=== PATIENT | male | born 1935 | race Hispanic/Latino ===

== ENCOUNTER 2016-08-16 07:14 | Day surgery (SDC) | payer BC, MEDICARE ==
[2016-08-16 08:34] VITALS: BMI 24.3
[2016-08-16] MEDS ORDERED: Midazolam 2 MG/2 ML VIAL ONE (08:46)
[2016-08-16] MEDS ORDERED: Rocuronium 10 mg/ml (5 ml) ONE (08:46)
[2016-08-16] MEDS ORDERED: Propofol 10 mg/ml Inj (20 ML) ONE (08:51)
[2016-08-16] MEDS ORDERED: Bupivacaine 0.5% Inj(30mL) ONE (09:17)
[2016-08-16] MEDS ORDERED: Lidocaine 1% Inj (20ml) ONE (09:17)
[2016-08-16] MEDS ORDERED: Lactated Ringer's 1,000 ML IV SCH (09:18)
[2016-08-16] MEDS ORDERED: Sevoflurane - Inhalation Anesthetic Liq (250 ml) ONE (09:46)
[2016-08-16] MEDS ORDERED: Glycopyrrolate 0.2 mg/ml (2ml vial) ONE (10:03)
[2016-08-16] MEDS ORDERED: Neostigmine Methylsulfate 3mg/3ml Syringe IV ONE (10:04)
--- NOTE | 2016-08-16 11:02 | PCM.SURG1 ---
Surgeon's Initial Post Op Note - Surgeon's Notes Surgeon: Dr. Garcia Team Lead: Dr. Porter Type of Anesthesia: General Endo, Local Pre-Operative Diagnosis: right inguinal hernia Operative Findings: see op report Post-Operative Diagnosis: right inguinal hernia Operation Performed: right inguinal hernia repair w/ mesh Specimen/Specimens Removed: none Estimated Blood Loss: EBL {In ML}: 5 Blood Products Given: N/A Drains Used: No Drains Post-Op Condition: Good Date of Surgery/Procedure: 08/16/16 Time of Surgery/Procedure: 11:01
--- NOTE | 2016-08-16 11:14 | OP ---
PROCEDURE DATE: 08/16/2016 PREOPERATIVE DIAGNOSIS: Right inguinal hernia. POSTOPERATIVE DIAGNOSIS: Right inguinal hernia. PROCEDURE PERFORMED: Right inguinal hernia repair with PHS double-layer mesh. SURGEON: Elfego Garcia MD. FLAG FOOTBALL COACH: Dr. Porter. ANESTHESIOLOGIST: Dr. Wilkinson. ANESTHESIA: General endotracheal anesthesia. ESTIMATED BLOOD LOSS: Minimal. SPECIMEN: None. INDICATION: The patient is a 81-year-old male who was seen in the office with complaint of a bulge i n the right groin associated with tenderness and discomfort. The physical exam showed presence of a right inguinal hernia, and the patient was scheduled for the repair. DESCRIPTION OF PROCEDURE: The patient was brought to the operating room and placed on the operating table in supine position. The patient was connected to EKG, blood pressure, and pulse oximeter monit ors. The patient then underwent general endotracheal anesthesia, was prepped and draped in the usual sterile fashion. First, standard timeout procedure took place with everybody in the room agreeing a s to the patient's identity, diagnosis, and procedure to be performed. Using lidocaine mixed with Marcaine, the area of the incision was infiltrated, and incision was made through the skin and subcutaneous fat. Rosey's fascia was incised, and the external oblique aponeur osis was identified. This was incised along its fibers and elevated from the underlying cord. Next, ____ clamp was placed to retract the transversalis fascia, and the cord with its structures was care fully dissected out off the floor of the inguinal canal. It appeared that there was a direct herniat ion through the floor of the inguinal canal, which was carefully pushed back, and the preperitoneal s pace was then mobilized through the internal ring of the inguinal canal. Once I was satisfied with t he mobilization and exposure, I then placed the PHS - double-layer applied with the posterior layer p laced in the preperitoneal space, and the external layers sutured to the edges of the transversalis f ascia and inguinal ligament, leaving adequate opening for the cord exit site. The external layer zapata d a keyhole cut out for the cord exit site and was sutured behind it leaving just a 2-cm opening for the cord itself. Now, the external portion of the plug was placed flatly on the floor of the inguinal canal, and the c ord was placed back in its original position. The ilioinguinal nerve, which was earlier identified, appeared to be running fairly high above the repair, and therefore, was left alone. The external obl ique aponeurosis was now sutured together using 3-0 Vicryl in running fashion covering the cord exit site and the internal inguinal ring. The area was now infiltrated with lidocaine mixed with Marcaine and Toradol. The wound was copiously irrigated. All the irrigant fluid was suctioned out. There was excellent hemostasis. The wound th en was closed using 3-0 Vicryl for the Rosey's fascia, 3-0 Vicryl for the deep dermal layer and 4-0 Monocryl for skin. A sterile Dermabond dressing was applied to the wound. The patient tolerated the procedure well, and there were no complications. The patient was awakened and transferred to recovery room for further observation. Elfego Garcia MD cc: [id number] TT: 08/16/2016 11:13:58 jn
[2016-08-16 11:46] VITALS: RESP 18
[2016-08-16 12:00] VITALS: TEMP 97.5
[2016-08-16 12:28] VITALS: O2SAT 97
[2016-08-16 13:22] VITALS: BP 148/78; PULSE 60
== END 2016-08-16 13:30 | disposition home or self-care (01) ==
LOC: SDS 07:14
PROVIDERS: ATTEND General Practice
DX: K40.90 Unilateral inguinal hernia, without obstruction or gangrene, not specified as recurrent (principal); I10 Essential (primary) hypertension
CPT/HCPCS: 49505; C1781; J0690; J1885; J2001; J2250; J2405; J2704; J2710; J3010; J7120 ×2

== ENCOUNTER 2016-09-20 06:12 | Day surgery (SDC) | payer BC, MEDICARE ==
[2016-09-13 08:11] VITALS: BMI 22.8
[2016-09-20 06:53] LABS: BASO # 0.02 K/mm3 (0.0-2.0); BASO % 0.2 % (0.0-3.0); EOS # 0.3 (0.0-0.7); EOS % 3.4 % (1.5-5.0); GRAN # 5.69 (1.4-6.5); GRAN % 66.7 % (50.0-68.0); HEMOGLOBIN 13.4 gm/dL (14.0-18.0); LYMPH # 1.8 (1.2-3.4); LYMPH % 20.7 % (22.0-35.0); MEAN CELL VOLUME 91.1 fL (80.0-105.0); MEAN CORPUSCULAR HGB CONC 32.9 g/dl (31.0-37.0); MEAN PLATELET VOLUME 10.3 fl (7.0-11.0); MONO # 0.8 (0.1-0.6); PLATELET COUNT 203 10^3/uL (120.0-450.0); RBC 4.47 10^6/uL (3.5-6.1); RED CELL DISTRIBUTION WIDTH 13.8 % (11.5-14.5); WHITE BLOOD COUNT 8.5 10^3/ul (4.5-11.0)
[2016-09-20 07:08] LABS: BLOOD UREA NITROGEN 27 mg/dL (7-21); GFR AFRICAN-AMERICAN > 60; GFR NON-AFRICAN AMERICAN > 60
[2016-09-20] MEDS ORDERED: Bupivacaine 0.5% Inj(30mL) ONE (07:27)
[2016-09-20] MEDS ORDERED: Propofol 10 mg/ml Inj (20 ML) ONE ×2 (07:43→08:42)
[2016-09-20] MEDS ORDERED: Midazolam 2 MG/2 ML VIAL ONE (07:43)
[2016-09-20] MEDS ORDERED: Phenylephrine 10 mg/ml Inj ONE (07:46)
[2016-09-20] MEDS ORDERED: ePHEDrine 50 mg/ml Inj ONE (07:47)
[2016-09-20] MEDS ORDERED: Rocuronium 10 mg/ml (5 ml) ONE ×2 (08:21)
[2016-09-20] MEDS ORDERED: Neostigmine Methylsulfate 3mg/3ml Syringe IV ONE (09:10)
[2016-09-20] MEDS ORDERED: Naloxone 0.4 mg/ml Inj (Adult) ONE (09:31)
--- NOTE | 2016-09-20 09:48 | PCM.SURG1 ---
Surgeon's Initial Post Op Note - Surgeon's Notes Surgeon: Dr. Garcia Can Sterilizer: Dr. Mauricio PGY2, Dr. Latham PGY1, Ellie Ferrell OMS3 Type of Anesthesia: General Mask, Local Pre-Operative Diagnosis: Left Inguinal hernia Operative Findings: see op note Post-Operative Diagnosis: Left Pantaloon Hernia Operation Performed: Left inguinal herniorraphy with mesh Specimen/Specimens Removed: none Estimated Blood Loss: EBL {In ML}: 3 Date of Surgery/Procedure: 09/20/16 Time of Surgery/Procedure: 08:00
[2016-09-20] MEDS ORDERED: HYDROmorphone 0.5 mg/0.5 ml ISec IVP PRN (09:49)
[2016-09-20] MEDS ORDERED: Lactated Ringer's 1,000 ML IV SCH (09:49)
[2016-09-20 10:49] VITALS: RESP 18; TEMP 97.5; O2SAT 97
[2016-09-20 11:33] VITALS: BP 129/75; PULSE 71
--- NOTE | 2016-09-21 00:36 | OP ---
PROCEDURE DATE: 09/20/2016 PREOPERATIVE DIAGNOSIS: Left inguinal hernia. POSTOPERATIVE DIAGNOSIS: Left inguinal hernia. PROCEDURE: Left inguinal hernia repair with PHS mesh. SURGEON: Elfego Garcia MD PROOF MACHINE OPERATOR SUPERVISOR: Dr. Mauricio. TYPE OF ANESTHESIA: LMA general anesthesia. ANESTHESIA ADMINISTERED BY: Dami Herbert MD ESTIMATED BLOOD LOSS: Minimal. SPECIMEN: None. INDICATIONS: The patient is a 81-year-old male with history of right inguinal hernia, status post repair now, came back with a left inguinal hernia associated with tenderness and discomfort and was scheduled for the repair. DESCRIPTION OF PROCEDURE: The patient was brought to the operating room, placed on operating table in supine position. The patient was connected to EKG, blood pressure, and pulse oximetry monitors. The patient then underwent the LMA anesthesia and was prepped and draped in the usual sterile fashion. First, a standard time-out procedure took place and everybody in the room agreed as to the patient's identify, diagnosis, and procedure to be performed.. Using lidocaine mixed with Marcaine, the area of the incision was infiltrated and a #15 blade was used in order to make an incision to the skin. This incision was carried through the subcutaneous fat and fascia and access to the external oblique aponeurosis was obtained. That was incised along its fibers and carefully elevated and the underlying spermatic cord with its structures were elevated on a Rule drain. Now, the floor of the inguinal canal was carefully evaluated, and it appeared that there was a direct component to the hernia. There was also an indirect component to this hernia which was carefully from the cord structures and pushed back into the abdomen cavity. At this point, the properitoneal space was mobilized carefully and the edges of the transversalis fascia as well as the edges of the inguinal ligament was grabbed with Allis clamps. The double-layer PHS mesh patch was used to repair the hernia and patches, posterior leaf was placed in the preperitoneal place and the anterior leaf was sutured to the edges of transversalis fascia and inguinal ligament. Once the patch was in place, the keyhole cut out was made for the exit site in spermatic cord and the superficial portion of the patch was placed laterally on the floor of the inguinal canal. The ilioinguinal nerve, which was running above the area of dissection appeared to be intact after the surgery. Now, the area was copiously irrigated. All the irrigant fluid was suctioned out. There was excellent hemostasis. The external oblique aponeurosis was now sutured after the cord was placed back in its original position and the area was infiltrated with lidocaine mixed with Toradol. The Rosey fascia was closed using 3-0 Vicryl and so was the deep dermal layer. The skin was closed using 4-0 Monocryl in a subcuticular fashion. A sterile Dermabond dressing was applied to the wound. The patient tolerated the procedure well and there were no complications. The patient was awaken and transferred to recovery room for further observation. Elfego Garcia MD
== END 2016-09-20 11:55 | disposition home or self-care (01) ==
LOC: SDS 06:12
PROVIDERS: ATTEND General Practice
DX: K40.90 Unilateral inguinal hernia, without obstruction or gangrene, not specified as recurrent (principal)
CPT/HCPCS: 36415; 49505; 80048; 85025; C1781; J0690; J1170; J1885; J2001; J2250; J2310; J2370; J2405; J2704; J2710; J3010; J7120 ×2

== ENCOUNTER 2018-03-19 19:51 | Emergency (ER) | payer MEDICARE, OTHER ==
[2018-03-19 19:51] VITALS: BMI 22.8
--- NOTE | 2018-03-19 20:10 | ED PDOC ---
Arrival/HPI - General Chief Complaint: Seizure Time Seen by Provider: 03/19/18 19:52 Historian: Patient - History of Present Illness Narrative History of Present Illness (Text): 03/19/18 20:10 Praful Narayanan is an 83 year old male, whose past medical history includes seizure disorder, hypertension, hyperlipidemia, and GERD, who presents to the Emergency department accompanied by family status post seizure. As per patient, he woke up this morning feeling increasingly dizzy and had a witnessed seizure episode prior to arrival. states this is the patient's first seizure in approximately 3 years and patient notes he has been compliant with his Lamictal. Patient notes he currently feels "a bit cloudy." Patient denies any fever, chills, chest pain, shortness of breath, nausea, vomiting, diarrhea, urinary symptoms, back pain, neck pain, headache, vision changes, numbness/weakness, or any other complaints. PMD: Dr. Lafleur Neurologist: Dr. Xavier Paez Symptom Onset: Gradual Symptom Course: Unchanged Activities at Onset: Light Context: Home Past Medical History - Provider Review Nursing Documentation Reviewed: Yes - Infectious Disease Hx of Infectious Diseases: None - Tetanus Immunization Tetanus Immunization: Unknown - Cardiac Hx Pacemaker: No - Pulmonary Hx Respiratory Disorders: No Hx Asthma: No Hx Bronchitis: No Hx Chronic Obstructive Pulmonary Disease (COPD): No Hx Emphysema: No Hx Pneumonia: No Hx Respiratory Aspiration: No Hx Respiratory Tract Infection: No Hx Sleep Apnea: No Hx Tuberculosis: No - Neurological Hx Paralysis: No - HEENT Hx HEENT Disorder: No Hx Blind: No Hx Cataracts: Yes (cataract sx) Hx Deafness: No Hx Difficulty Chewing: No Hx Epistaxis: No Hx Glaucoma: No Hx Macular Degeneration: No - Renal Hx Renal Disorder: No Hx Dialysis: No Hx Kidney Stones: No Hx Neurogenic Bladder: No Hx Pyelonephritis: No Hx Renal Cancer: No Hx Renal Failure: No - Endocrine/Metabolic Hx Endocrine Disorders: No Hx Adrenal Cancer: No Hx Diabetes Insipidus: No Hx Diabetes Mellitus Type 1: No Hx Diabetes Mellitus Type 2: No Hx Hyperthyroidism: No Hx Hypothyroidism: No Hx Systemic Lupus Erythematosus: No - Hematological/Oncological Hx Blood Transfusions: No - Integumentary Hx Dermatological Disorder: No Hx Basal Cell Carcinoma: No Hx Eczema: No Hx Melanoma: No Hx Psoriasis: No Hx Squamous Cell Carcinoma: No - Musculoskeletal/Rheumatological Hx Musculoskeletal Disorders: No - Gastrointestinal Hx Gastrointestinal Disorders: No Hx Colostomy: No Hx Crohn's Disease: No Hx Diverticulitis: No Hx Gall Bladder Disease: No Hx Gastroesophageal Reflux: No Hx Gastrointestinal Ulcer: No Hx Ileostomy: No Hx Liver Failure: No Hx Pancreatitis: No HX Swallowing Problems: No - Genitourinary/Gynecological Hx Genitourinary Disorders: No Hx Hematuria: No Hx Incontinence: No Hx Prostate Problems: No Hx Sexually Transmitted Diseases: No Hx Urinary Tract Infection: No - Psychiatric Hx Emotional Abuse: No Hx Physical Abuse: No Hx Substance Use: No - Past Surgical History Past Surgical History: Non-Contributing - Surgical History Hx Amputation: No Hx Appendectomy: No Hx Cardiac Catheterization: No Hx Cholecystectomy: No Hx Coronary Stent: No Hx Gastric Bypass Surgery: No Hx Hysterectomy: No Hx Inguinal Hernia Repair: No Hx Joint Replacement: No Hx Kidney Transplant: No Hx Liver Transplant: No Hx Mastectomy: No Hx Musculoskeletal Surgery: No Hx Open Heart Surgery: No Hx Orthopedic Surgery: No Hx Splenectomy: No Hx Valve Replacement: No - Anesthesia Hx Anesthesia Reactions: No Hx Malignant Hyperthermia: No - Suicidal Assessment Feels Threatened In Home Enviroment: No Family/Social History - Physician Review Nursing Documentation Reviewed: Yes Family/Social History: Unknown Family HX Smoking Status: Never Smoked Hx Alcohol Use: No Hx Substance Use: No Allergies/Home Meds Allergies/Adverse Reactions: Allergies No Known Allergies Allergy (Verified 03/19/18 19:57) Home Medications: Home Meds Medication Instructions Recorded Confirmed Aspirin [Ecotrin] 81 mg PO DAILY 08/10/16 03/19/18 Candesartan Cilexetil [Atacand] 8 mg PO DAILY 08/10/16 03/19/18 Esomeprazole Magnesium [Nexium] 40 mg PO DAILY 08/10/16 03/19/18 Ezetimibe [Zetia] 10 mg PO DAILY 08/10/16 03/19/18 LORazepam [Ativan] 0.5 mg PO PRN PRN 08/10/16 03/19/18 Lamotrigine [Lamictal] 150 mg PO TID 08/10/16 03/19/18 RX: traMADol [Ultram] 50 mg PO Q6 PRN 09/20/16 03/19/18 Review of Systems - Physician Review All systems were reviewed & negative as marked: Yes - Review of Systems Constitutional: Normal. absent: Fevers Eyes: Normal ENT: Normal Respiratory: Normal. absent: SOB, Cough Cardiovascular: Normal. absent: Chest Pain Gastrointestinal: Normal. absent: Abdominal Pain, Diarrhea, Nausea, Vomiting Genitourinary Male: Normal. absent: Dysuria, Frequency, Hematuria, Urinary Output Changes Musculoskeletal: Normal. absent: Neck Pain Skin: Normal. absent: Rash Neurological: Dizziness, Seizure Endocrine: Normal Hemo/Lymphatic: Normal Psychiatric: Normal Physical Exam Vital Signs Reviewed: Yes Vital Signs Temp Pulse Resp BP Pulse Ox 03/19/18 20:03 97.5 F L 91 H 18 162/102 H 95 Temperature: Afebrile Blood Pressure: Hypertensive Pulse: Regular Respiratory Rate: Normal Appearance: Positive for: Well-Appearing, Non-Toxic, Comfortable Pain Distress: None Mental Status: Positive for: Alert and Oriented X 3 - Systems Exam Head: Present: Atraumatic, Normocephalic Pupils: Present: PERRL Extroacular Muscles: Present: EOMI Conjunctiva: Present: Normal Mouth: Present: Moist Mucous Membranes Neck: Present: Normal Range of Motion Respiratory/Chest: Present: Clear to Auscultation, Good Air Exchange. No: Respiratory Distress, Accessory Muscle Use Cardiovascular: Present: Regular Rate and Rhythm, Normal S1, S2. No: Murmurs Abdomen: No: Tenderness, Distention, Peritoneal Signs Back: Present: Normal Inspection Upper Extremity: Present: Normal Inspection. No: Cyanosis, Edema Lower Extremity: Present: Normal Inspection. No: Edema Neurological: Present: GCS=15, CN II-XII Intact, Speech Normal, Motor Func Grossly Intact, Normal Sensory Function, Normal Cerebellar Funct Skin: Present: Warm, Dry, Normal Color. No: Rashes Psychiatric: Present: Alert, Oriented x 3, Normal Insight, Normal Concentration Medical Decision Making ED Course and Treatment: 03/19/18 20:10 Impression: 83 year old male complaining of seizure and dizziness. Plan: -- CT Head w/o contrast -- EKG -- Labs, alcohol level -- Urinalysis -- Reassess and disposition Prior Visits: Notes and results from previous visits were reviewed. Progress Notes: Reviewed EKG, NSR at 85 bpm. LAD. RBBB. LVH. Non-specific ST/T changes. 03/19/18 21:06 CT Head: BRAIN Chronic periventricular and subcortical microvascular disease is seen. VENTRICLES: There is generalized parenchymal atrophy noted as demonstrated by symmetrical dilatation of ventricles and sulci. ORBITS: The orbits are unremarkable. SINUSES AND MASTOIDS: The paranasal sinuses and mastoid air cells are clear. BONES: No fracture. SOFT TISSUES: Unremarkable. MISCELLANEOUS: No acute intracranial pathology. IMPRESSION: 1. There is generalized parenchymal atrophy noted as demonstrated by symmetrical dilatation of ventricles and sulci. 2. Chronic periventricular and subcortical microvascular disease is seen. 3. No acute intracranial pathology. Electronically signed on Mar 19, 2018 9:00:31 PM EST by: Sharan Deng M.D., [place] Certified By [facility] Fellowship Trained MRI and CT Specialist 03/19/18 21:[address] Xavier Paez, neurologist, who is aware and agrees with plan.increase night dose of lamictal 03/19/18 22:[address] Lafleur, who is aware and agrees with plan. Accepts pt in to his service. Pt will go to remote telemetry for seizure disorder.and post ictal state and confusion 03/20/18 00:51 - Lab Interpretations I have reviewed the lab results: Yes - RAD Interpretation Silk Screen Operator: Radiologist - EKG Interpretation Interpreted by ED Physician: Yes Type: 12 lead EKG - Scribe Statement The provider has reviewed the documentation as recorded by the Louieibteodora Wynn Provider Scribe Attestation: All medical record entries made by the Scribe were at my direction and personally dictated by me. I have reviewed the chart and agree that the record accurately reflects my personal performance of the history, physical exam, medical decision making, and the department course for this patient. I have also personally directed, reviewed, and agree with the discharge instructions and disposition. Disposition/Present on Arrival - Present on Arrival Any Indicators Present on Arrival: No History of DVT/PE: No History of Uncontrolled Diabetes: No Urinary Catheter: No History of Decub. Ulcer: No History Surgical Site Infection Following: None - Disposition Have Diagnosis and Disposition been Completed?: Yes Diagnosis: Seizure Disposition: HOSPITALIZED Disposition Time: 22:00 Condition: GOOD
[2018-03-19 20:45] LABS: ALB/GLOB RATIO 1.3 (1.1-1.8); ALT/SGPT 34 U/L (7-56); AST/SGOT 29 U/L (17-59); BLOOD UREA NITROGEN 25 mg/dL (7-21); CALCIUM 9.2 mg/dL (8.4-10.5); GFR NON-AFRICAN AMERICAN > 60
[2018-03-19 20:50] LABS: BASO # 0.03 K/mm3 (0.0-2.0); BASO % 0.4 % (0.0-3.0); EOS # 0.2 (0.0-0.7); EOS % 3.1 % (1.5-5.0); GRAN # 5.55 (1.4-6.5); GRAN % 72.1 % (50.0-68.0); HEMOGLOBIN 14.1 g/dL (14.0-18.0); LYMPH # 1.3 (1.2-3.4); LYMPH % 17.1 % (22.0-35.0); MEAN CELL VOLUME 91.7 fl (80.0-105.0); MEAN CORPUSCULAR HEMOGLOBIN 30.1 pg (25.0-35.0); MEAN CORPUSCULAR HGB CONC 32.8 g/dl (31.0-37.0); MEAN PLATELET VOLUME 10.2 fl (7.0-11.0); MONO # 0.6 (0.1-0.6); MONO % 7.3 % (1.0-6.0); RBC 4.69 10^6/uL (3.5-6.1); RED CELL DISTRIBUTION WIDTH 14.2 % (11.5-14.5); WHITE BLOOD COUNT 7.7 10^3/uL (4.5-11.0)
[2018-03-19 21:58] LABS: URINE BILIRUBIN NEGATIVE (NEGATIVE); URINE BLOOD NEGATIVE (NEGATIVE); URINE GLUCOSE (UA) NEGATIVE (NEGATIVE); URINE LEUKOCYTE ESTERASE NEGATIVE Leu/uL (NEGATIVE); URINE PROTEIN NEGATIVE mg/dL (<30 mg/dL); URINE UROBILINOGEN 0.2 E.U./dL (<1 E.U./dL)
[2018-03-19 22:01] LABS: URINE APPEARANCE CLEAR (CLEAR); URINE COLOR YELLOW (YELLOW)
--- NOTE | 2018-03-20 09:34 | CT ---
Date of service: 03/19/2018 PROCEDURE: CT HEAD WITHOUT CONTRAST. HISTORY: seizure COMPARISON: 11/21/2013 TECHNIQUE: Axial computed tomography images were obtained through the head/brain without intravenous contrast. Radiation dose: Total exam DLP = 871.45 mGy-cm. This CT exam was performed using one or more of the following dose reduction techniques: Automated exposure control, adjustment of the mA and/or kV according to patient size, and/or use of iterative reconstruction technique. FINDINGS: HEMORRHAGE: No intracranial hemorrhage. BRAIN: No mass effect or edema. Mild atrophy VENTRICLES: Unremarkable. No hydrocephalus. CALVARIUM: Unremarkable. PARANASAL SINUSES: Unremarkable as visualized. No significant inflammatory changes. MASTOID AIR CELLS: Unremarkable as visualized. No inflammatory changes. OTHER FINDINGS: The report concurs with the preliminary [facility] report IMPRESSION: No acute intracranial findings
[2018-03-20 09:51] VITALS: RESP 18; O2SAT 98
--- NOTE | 2018-03-20 09:51 | CARD ---
APPROVED REPORT Date of service: 03/19/2018 EKG Measurement Heart [id number] AR [id number] [id number] <Conclusion> Normal sinus rhythm Left axis deviation Right bundle branch block Left ventricular hypertrophy
[2018-03-20 10:17] VITALS: BP 142/76; PULSE 88; TEMP 98.6
--- NOTE | 2018-03-20 12:33 | HP ---
HISTORY OF PRESENT ILLNESS: The patient is an 83-year-old man with a past medical history of seizure disorder who presented s/p witnessed grand mal seizure. The patient is followed by Dr. Paez of Neurology and is on Lamictal 150 mg p.o. t.i.d. He has been seizure free for approximately 3 years but for the past several weeks he has not been compliant with his medications. On the day of presentation to the ED he had a seizure witnessed by his . He was taken to [facility] ED by EMS for further evaluation. In the ED he was afebrile and hemodynamically stable but found to be rather confused. Examination was otherwise unremarkable. A CT of the head was negative for acute pathology and he was admitted for continued observation. PAST MEDICAL HISTORY: As per HPI, also hypertension, hyperlipidemia, anxiety disorder and GERD. PAST SURGICAL HISTORY: Right inguinal hernia repair, tonsillectomy and bilateral cataract removal. ALLERGIES: NKDA. MEDICATIONS: Lamictal 150 mg p.o. t.i.d., Aspirin 81 mg p.o. daily, Nexium 40 mg p.o. daily, Zetia 10 mg p.o. daily, Candesartan 8 mg p.o. daily, and Ativan 0.5 mg p.o. b.i.d. as needed for anxiety. FAMILY HISTORY: Significant for hypertension and coronary artery disease. SOCIAL HISTORY: The patient denies tobacco use or illicit drug abuse. He does report social alcohol use. REVIEW OF SYSTEMS: A 12-point review of systems is negative except as per HPI. PHYSICAL EXAMINATION: VITAL SIGNS: Temperature 98.1, pulse 63, blood pressure 135/84, respiratory rate 16, oxygen saturation 97% on room air. GENERAL: No apparent distress. HEENT: NC/AT, PERRL, EOMI. No scleral icterus. No conjunctival pallor. No tongue lacerations. NECK: No JVD, no bruits. LUNGS: Clear to auscultation. CARDIOVASCULAR: Regular rate and rhythm. Normal S1 and S2. No murmurs. ABDOMEN: Normoactive bowel sounds. Soft, nontender, nondistended. EXTREMITIES: No edema. NEUROLOGIC: Awake, alert and oriented x 3. No focal motor deficits. LABORATORY DATA: WBC 7.7, hemoglobin 14, hematocrit 43, platelets 205. Sodium 144, potassium 4.3, chloride 107, bicarb 31, BUN 25, creatinine 0.9, glucose 134. IMAGING STUDIES: CT of the head without contrast demonstrated generalized parenchymal atrophy with chronic microvascular changes but otherwise no acute pathology. ASSESSMENT: The patient is an 83-year-old man with a past medical history of seizure disorder who presented s/p witnessed seizure. PLAN: 1. Seizure disorder with recurrent seizure, likely precipitated by medication noncompliance. He was extensively counseled on the need for medication compliance. We will resume Lamictal 150 mg p.o. t.i.d. After discussing the case with Dr. Paez, the patient is cleared for discharge and will follow-up with Dr. Paez. 2. Hypertension. Blood pressure controlled. Continue Candesartan 8 mg p.o. daily. 3. Hyperlipidemia. Continue Zetia 10 mg p.o. daily. 4. GERD. Continue Nexium 40 mg p.o. daily. 5. Anxiety disorder. Continue Ativan 0.5 mg p.o. b.i.d as needed. 6. Prophylaxis. GI prophylaxis not indicated as the patient remains on Nexium. DVT prophylaxis not indicated as the patient is ambulatory. CODE STATUS: Full code. Maynor Lafleur MD MTDD
--- NOTE | 2018-03-20 19:08 | DS ---
ADMITTING DIAGNOSIS: Seizure disorder with recurrent seizure. DISCHARGE DIAGNOSIS: Seizure disorder. SECONDARY DIAGNOSES: Hypertension, hyperlipidemia, anxiety disorder and GERD. CONSULTATIONS: Dr. Paez (Neurology). IMAGING STUDIES: CT of the head without contrast demonstrated no acute intracranial pathology. PROCEDURES: None. HISTORY OF PRESENT ILLNESS: The patient is an 83-year-old man with a past medical history of seizure disorder who presented s/p witnessed grand mal seizure. The patient is followed by Dr. Paez of Neurology and is on Lamictal 150 mg p.o. t.i.d. He has been seizure free for approximately 3 years but for the past several weeks he has not been compliant with his medications. On the day of presentation to the ED he had a seizure witnessed by his . He was taken to [facility] ED by EMS for further evaluation. In the ED he was afebrile and hemodynamically stable but with post-ictal confusion. Examination was otherwise unremarkable. A CT of the head was negative for acute pathology and he was admitted for continued observation. HOSPITAL COURSE: The patient was noted to remain seizure free while in the ED. After discussion with Dr. Paez the patient was counseled on the need to remain compliant with his medications. Due to his clinical stability and the fact that he had no laboratory derangements or pathology on neuroimaging studies, he was cleared for discharge to home from the neurological standpoint. CONDITION: Good, improved. DISPOSITION: Home. DISCHARGE MEDICATIONS: Lamictal 150 mg p.o. t.i.d., Aspirin 81 mg p.o. daily, Nexium 40 mg p.o. daily, Zetia 10 mg p.o. daily, Candesartan 8 mg p.o. daily and Ativan 0.5 mg p.o. b.i.d. as needed for anxiety. DISCHARGE INSTRUCTIONS: The patient was advised to remain adherent to his medications as prescribed. He was also advised that if he has any recurrence of his symptoms to present to his PMD or to the nearest ED immediately. FOLLOWUP: The patient to follow up with his PMD within 1 week of discharge. The patient to follow up with Dr. Paez as scheduled. Maynor Lafleur MD ESME
== END 2018-03-20 10:33 | disposition short-term general hospital (02) ==
LOC: ED 19:51 → UNDOADMOB 23:23 → ERH 23:23 → ED 03-20 10:33
DX: G40.409 Other generalized epilepsy and epileptic syndromes, not intractable, without status epilepticus (principal); E78.5 Hyperlipidemia, unspecified; I10 Essential (primary) hypertension; F41.9 Anxiety disorder, unspecified; K21.9 Gastro-esophageal reflux disease without esophagitis
CPT/HCPCS: 70450; 80053; 81003; 82550; 82948; 83735; 85025; 93005; 96374; 99285; G0480; J2060